=== PATIENT | female | born 1970 | race Two or more races ===

== ENCOUNTER 2020-01-19 19:08 | Emergency (ER) | payer BC, MEDICARE ==
[~2020-01-19] VITALS: Ht 170.2 cm; Wt 86.4 kg
[2020-01-19] MEDS ORDERED: ALBU83IN NEB (19:37)
[2020-01-19] MEDS ORDERED: XANA0.5T PO (19:37)
[2020-01-19] MEDS ORDERED: ROSU5TAB5 PO (19:37)
[2020-01-19] MEDS ORDERED: inhaler (19:37)
[2020-01-19] MEDS ORDERED: NS 1,000 ML IV SCH (19:42)
[2020-01-19] MEDS ORDERED: LORazepam 2 MG/ML VIAL IV STA (19:42)
[2020-01-19] MEDS ORDERED: ASPIRIN 81 MG CHEW TABLET PO ONE (19:45)
[2020-01-19 20:23] LABS: BASO # 0.1 10^3/uL (0.0-0.2); BASO % 0.8 % (0.0-1.0); EOS # 0.1 10^3/uL (0.0-0.5); EOS % 2.2 % (0.0-3.0); HEMATOCRIT 37.2 % (36.0-47.0); HEMOGLOBIN 11.5 g/dl (12.0-15.5); LYMPH # 2.8 10^3/uL (1.5-5.0); LYMPH % 44.6 % (24.0-44.0); MEAN CORPUSCULAR HGB CONC 30.9 g/dl (32.0-36.5); MEAN CORPUSCULAR VOLUME 74.3 fl (80.0-96.0); MONO # 0.5 10^3/uL (0.0-0.8); MONO % 7.7 % (0.0-5.0); NEUTROPHILS # 2.8 10^3/uL (1.5-8.5); NEUTROPHILS % 44.5 % (36.0-66.0); PLATELET COUNT, AUTOMATED 298 10^3/uL (150-450); RED BLOOD COUNT 5.01 10^6/uL (4.00-5.40); WHITE BLOOD COUNT 6.3 10^3/uL (4.0-10.0)
[2020-01-19 20:34] LABS: INR 0.92; PROTHROMBIN TIME 12.6 SECONDS (11.8-14.0)
[2020-01-19 20:46] LABS: BLOOD UREA NITROGEN 11 MG/DL (7-18); CARBON DIOXIDE LEVEL 26 MEQ/L (21-32); CHLORIDE LEVEL 106 MEQ/L (98-107); CK-MB VALUE MASS < 1.0 NG/ML (<3.6); CPK CREATINE PHOSPHOKINASE 107 U/L (26-192); CREATININE FOR GFR 0.89 MG/DL (0.55-1.30); GLOMERULAR FILTRATION RATE > 60.0 (>58); GLUCOSE, FASTING 89 MG/DL (70-100); LIPASE 123 U/L (73-393); MB/CK RELATIVE INDEX 0.93 (< OR =4); POTASSIUM SERUM 3.9 MEQ/L (3.5-5.1); SODIUM LEVEL 139 MEQ/L (136-145); TROPONIN I < 0.02 NG/ML (< 0.10)
[2020-01-19 22:45] VITALS: BP 102/60
[2020-01-19 23:07] LABS: CK-MB VALUE MASS < 1.0 NG/ML (<3.6); CPK CREATINE PHOSPHOKINASE 98 U/L (26-192); MB/CK RELATIVE INDEX 1.02 (< OR =4); TROPONIN I < 0.02 NG/ML (< 0.10)
--- NOTE | 2020-01-30 16:09 | ECGEPIP ---
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
--- NOTE | 2020-02-02 07:06 | ECGEPIP ---
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
--- NOTE | 2020-02-17 09:22 | REP ---
PORTABLE CHEST X-RAY CLINICAL: Chest pain. COMPARISON: None. FINDINGS: Mediastinum and cardiac silhouette normal. Lung smith clear without focal consolidation, effusion, or pneumothorax. Skeletal structures are intact. IMPRESSION: No acute cardiopulmonary process or focal consolidation. MTDD
== END 2020-01-19 23:17 | disposition home or self-care (01) ==
LOC: M ED 19:08
DX: F41.9 Anxiety disorder, unspecified (principal); Z87.820 Personal history of traumatic brain injury; J45.909 Unspecified asthma, uncomplicated; J30.89 Other allergic rhinitis; Z79.899 Other long term (current) drug therapy; Z88.0 Allergy status to penicillin
CPT/HCPCS: 71045; 80048; 82550; 82553; 83690; 84484; 85025; 85610; 93005; 93041; 94760; 96361; 96374; 99285; J2060